=== PATIENT | male | born 1995 | race Caucasian/White ===

== ENCOUNTER 2017-06-02 11:21 | Inpatient (IN) | payer OTHER ==
[~2017-06-02] VITALS: Ht 170.2 cm; Wt 58.0 kg
[~2017-06-02 11:21] MED LIST: AKWASOL OU; AMBI10TA PO; CELE20TA PO; SERO50TA PO; no home medications
[2017-06-02 12:20] LABS: MEAN CORPUSCULAR HEMOGLOBIN 28.4 pg (27.0-33.0); MEAN CORPUSCULAR HGB CONC 35.2 g/dl (32.0-36.5); MEAN CORPUSCULAR VOLUME 80.5 fl (80.0-96.0); RED CELL DISTRIBUTION WIDTH 12.2 % (11.5-14.5); WHITE BLOOD COUNT 6.3 10^3/uL (4.0-10.0)
[2017-06-02 12:59] LABS: ALBUMIN 4.9 GM/DL (3.2-5.2); ALKALINE PHOSPHATASE 45 U/L (45-117); ALT/SGPT 27 U/L (12-78); ANION GAP 5 MEQ/L (8-16); AST/SGOT 17 U/L (15-37); BILIRUBIN,DIRECT 0.3 MG/DL (0.0-0.2); BILIRUBIN,TOTAL 1.5 MG/DL (0.2-1.0); BLOOD UREA NITROGEN 12 MG/DL (7-18); CALCIUM LEVEL 9.3 MG/DL (8.5-10.1); CARBON DIOXIDE LEVEL 28 MEQ/L (21-32); CHLORIDE LEVEL 107 MEQ/L (98-107); CREATININE FOR GFR 0.91 MG/DL (0.70-1.30); GLOMERULAR FILTRATION RATE > 60.0 (>60); GLUCOSE, FASTING 100 MG/DL (70-105); POTASSIUM SERUM 4.3 MEQ/L (3.5-5.1); SODIUM LEVEL 140 MEQ/L (136-145); TOTAL PROTEIN 8.4 GM/DL (6.4-8.2)
[2017-06-02 13:32] LABS: METHADONE URINE NEGATIVE (NEGATIVE)
[2017-06-02] MEDS ORDERED: MAALOX 30 ML SUSP *UDC PO PRN (15:30)
[2017-06-02] MEDS ORDERED: MOM 30ML SUSPENSION UDC PO PRN (15:30)
[2017-06-02] MEDS ORDERED: OLANZapine 5 MG TAB PO PRN (15:30)
[2017-06-02] MEDS ORDERED: ACETAMINOPHEN TAB 650MG DOSE (2X325MG) PO PRN (15:30)
[2017-06-02] MEDS ORDERED: LORazepam 2 MG/ML VIAL (J2060) IM STA (16:12)
[2017-06-02] MEDS ORDERED: HALOPERIDOL 5 MG/ML VIAL (J1630) IM STA (16:12)
[2017-06-02 19:06] VITALS: BP 144/79
[2017-06-02] MEDS: PALIPERIDONE 3 MG ER TAB (INVEGA) PO SCH (21:45)
[2017-06-02] MEDS: traZODone 100 MG TAB PO SCH (21:45)
[2017-06-03 06:40] VITALS: BP 128/74
[2017-06-03] MEDS: PALIPERIDONE 3 MG ER TAB (INVEGA) PO SCH ×2 (09:15→21:00)
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
[2017-06-03 18:00] VITALS: BP 120/70
[2017-06-03] MEDS: traZODone 100 MG TAB PO SCH (21:00)
[2017-06-04 06:23] VITALS: BP_SYST 136
[2017-06-04] MEDS: PALIPERIDONE 3 MG ER TAB (INVEGA) PO SCH ×2 (08:36→21:42)
[2017-06-04 18:00] VITALS: BP 118/75
--- NOTE | 2017-06-04 19:35 | MHIPNPDOC ---
[facility] Progress Note Progress Note DATE OF SERVICE: 06/04/17 HISTORY: "I don't need to be here"; Patient was brought by parents to [facility] after they noticed he was reacting to internal stimuli, talking to people that were not there and starring into space of lengthy periods of time. He was transferred to the [facility] ED medically cleared and transferred to the [facility] with a unspecified psychotic disorder. VITAL SIGNS: See below. NEW TEST RESULTS: None CURRENT MEDICATIONS: See below. MENTAL STATUS EXAMINATION: Patient is a 22-year old male, who is alert, cooperative, dressed in hospital clothes, mildly disheveled. Speech: Is spontaneous and fluent. Language skills are fair. Thought processes including: Irrational. Thought content: Focused on being discharged because he still believes he doesn' t need to be at the inpatient mental health unit. Abstract reasoning, and computation: Not assessed at this time. Description of associations: Good. Description of abnormal or psychotic thoughts: Denies suicidal ideation, denies homicidal ideation denies thought delusions but he says that he sees a "scary moment in my basement" and "a tall skinny person that walked through the things that I have in my room". Judgment: Poor Insight: Poor. Orientation: Oriented 3. Recent and remote memory: Intact. Attention span and concentration: Fair. Language: Normal. Fund of knowledge: Not assessed at this time. Mood: Euthymic. Affect: And congruent with mood, slightly constricted. DIAGNOSES: 1. Unspecified psychotic disorder 2. Rule out schizophrenia 3. Rule out substance-induced psychosis ASSESSMENT: Patient is cooperative, calm, he is not aggressive but he has bizarre thoughts, like thinking that seen this scary woman in his basement ornithine person that went across his room is normal. He justifies his believes because he thinks that we are energy and that the "ghosts" that he is saw is the energy of people who have lived in that house probably 100 years ago. I think we should continue to gather information about previous substance abuse that could have caused this episode. MANAGEMENT PLAN: Will continue the same treatment plan. Will order CT of the head TIME SPENT: 30 minutes. Vital Signs Vital Signs Date Time Temp Pulse Resp B/P (MAP) Pulse Ox O2 Delivery O2 Flow Rate FiO2 06/04/17 18:00 93.0 107 16 118/75 (89) 06/04/17 06:23 76 06/02/17 11:21 Room Air Current Medications Current Medications Acetaminophen (Tylenol Tab) 650 mg Q6HP PRN PO HEADACHE or DISCOMFORT; Start at 15:30; Stop 07/02/17 at 15:29 Al Hydrox/Mg Hydrox/Simethicone (Mylanta) 30 ml Q4HP PRN PO HEARTBURN/ INDIGESTION; Start 06/02/17 at 15:30; Stop 07/02/17 at 15:29 Haloperidol (Haldol) 5 mg STAT STAT IM ; Start 06/02/17 at 16:12; Stop at 16:13; Status DC Home Med (Med Rec Complete!) ASDIRECTED XX ; Start 06/02/17 at 13:45; Stop at 13:45; Status DC Lorazepam (Ativan) 1 mg STAT STAT IM Last administered on 06/02/17 16:20; Start 06/02/17 at 16:12; Stop 06/02/17 at 16:13; Status DC Magnesium Hydroxide (Milk Of Magnesia) 30 ml DAILYPRN PRN PO CONSTIPATION; Start 06/02/17 at 15:30; Stop 07/02/17 at 15:29 Olanzapine (ZyPREXA) 5 mg Q4HP PRN PO ANXIETY/AGITATION; Start 06/02/17 at 15: 30; Stop 07/02/17 at 15:29 Paliperidone (Invega) 3 mg BID PO Last administered on 06/04/17 08:36; Start 06/02/17 at 21:00; Stop 07/02/17 at 20:59 Trazodone HCl (Desyrel) 100 mg QHS PO Last administered on 06/02/17 21:45; Start 06/02/17 at 21:00; Stop 07/02/17 at 20:59 Allergies Coded Allergies: [place] Flavor (Verified Allergy, Unknown, 07/04/14) CAMILO VOGT MD Jun 04, 2017 19:35
--- NOTE | 2017-06-04 21:20 | REPUSA ---
CT of the head Clinical history: altered mental status. Comparison: 07/07/2014. Technique: Multiple axial CT images were obtained through the head without administration of contrast . Findings: The ventricles and sulci are symmetric bilaterally. There is no evidence of acute hemorrhag e or infarct. There is no midline shift, mass effect, or extra-axial fluid collection. The osseous st ructures are unremarkable. The visualized paranasal sinuses and mastoid air cells are clear. Impression: Negative study.
[2017-06-04] MEDS: traZODone 100 MG TAB PO SCH (21:42)
--- NOTE | 2017-06-05 00:22 | HPE ---
DATE OF ADMISSION: 06/02/2017 HISTORY OF PRESENT ILLNESS: Please refer to psychiatric history and evaluation for further details on this admission. This examination and history is intended for medical issues, which may need treatment, followup or consult on this 22-year-old male. PAST MEDICAL HISTORY: None. PAST SURGICAL HISTORY: [place] teeth extraction. ALLERGIES: No known drug allergies. He does have allergy to strawberry flavor. SOCIAL HISTORY: He is single. Resides with his parents. His father is retired . Ethyl alcohol (EtOH): 1-2 beers, none in about 6 months. Smokes none. Recreational drug use: Marijuana and hash. RADIOLOGY STUDIES: CT was negative. EKG on file sinus rhythm. LABORATORY STUDIES: CBC was normal. Electrolytes normal. BUN 12, creatinine 0.9. Total bilirubin 1.5, direct bilirubin 0.3. Urine was positive for cannabinoids. HOME MEDICATIONS: None. REVIEW OF SYSTEMS: 10-system review was done, was unremarkable. PHYSICAL EXAMINATION: 22-year-old cooperative male in no acute distress. Height 67 inches, weight 58.9 kg, body mass index (BMI) 20.3. Blood pressure 136/70, pulse 80, respirations 18, temperature 98.3. Patient is alert and oriented times three. Pupils equal and react to light. Extraocular muscles intact. Cornea and sclerae clear. Conjunctivae were normal. No facial asymmetry. Pharynx, tongue and gums pink and moist. Tongue is midline. Neck is supple without lymphadenopathy. No thyromegaly, no goiter. Carotids 2+ without bruit. Chest clear to auscultation without wheeze or retraction. Heart is regular. Abdomen is benign. Bowel sounds positive. Genitourinary/rectal: Not done. Extremities show equal strength, full range of motion. No cyanosis, clubbing or edema. Peripheral pulses equal and palpable bilaterally. Skin is warm and dry. IMPRESSION/PLAN: Psychiatric plan per psychiatry. No current acute medical issues.
[2017-06-05 06:20] VITALS: BP 118/70
[2017-06-05] MEDS: PALIPERIDONE 3 MG ER TAB (INVEGA) PO SCH ×2 (10:39→20:07)
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
[2017-06-05 18:14] VITALS: BP 108/76
[2017-06-05] MEDS: traZODone 100 MG TAB PO SCH (20:07)
[2017-06-06 06:34] VITALS: BP 101/60
[2017-06-06] MEDS: PALIPERIDONE 3 MG ER TAB (INVEGA) PO SCH ×2 (09:58→21:12)
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
[2017-06-06 18:00] VITALS: BP 122/80
[2017-06-06] MEDS: traZODone 100 MG TAB PO SCH (21:12)
[2017-06-07 06:43] VITALS: BP 110/69
[2017-06-07] MEDS: PALIPERIDONE 3 MG ER TAB (INVEGA) PO SCH ×2 (08:17→21:50)
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
[2017-06-07 18:55] VITALS: BP 122/75
[2017-06-07] MEDS: traZODone 100 MG TAB PO SCH (21:50)
[2017-06-08 07:02] VITALS: BP 130/70
[2017-06-08] MEDS: PALIPERIDONE 3 MG ER TAB (INVEGA) PO SCH (08:23)
[2017-06-08] MEDS ORDERED: PALIPERIDONE PALMITATE 234 MG/1.5 ML INJ (INVEGA SUSTENNA)(J2426) IM SCH (09:00)
[2017-06-08] MEDS ORDERED: PALIPERIDONE PALMITATE 156 MG/1ML INJ(INVEGA SUSTENNA)(J2426) IM SCH (09:00)
[2017-06-08] MEDS ORDERED: INVE234I IM (09:23)
[2017-06-08] MEDS ORDERED: TRAZ10TA PO (09:23)
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
[2017-06-27] MEDS ORDERED: INVE234I IM ×2 (14:09→14:12)
== END 2017-06-08 11:00 | disposition home or self-care (01) | DRG 885 ==
LOC: M ED 11:21 → M ED INP 15:15 → M PSY 19:03
PROVIDERS: ADMIT Psychiatry & Neurology Psychiatry; ATTEND Psychiatry & Neurology Psychiatry
DX: F25.9 Schizoaffective disorder, unspecified (principal); F12.90 Cannabis use, unspecified, uncomplicated; Z79.899 Other long term (current) drug therapy

== ENCOUNTER → 2017-07-12 | Outpatient (CLI) | payer OTHER ==
[~2017-07-12] MED LIST changes: +INVE234I IM; +TRAZ10TA PO
== END ==
LOC: M OUTALCOH 11:59
PROVIDERS: ATTEND Psychiatry & Neurology Psychiatry
DX: F12.20 Cannabis dependence, uncomplicated (principal)

== ENCOUNTER → 2017-08-03 | Outpatient (RCR) | payer OTHER | LOC: M OUTALCOH 07-25 09:00 | PROVIDERS: ATTEND Psychiatry & Neurology Psychiatry | DX: F12.20 Cannabis dependence, uncomplicated (principal) ==

== ENCOUNTER 2017-08-10 11:00 | Outpatient (RCR) | payer OTHER | END 2017-09-03 | LOC: M OUTALCOH 08-17 10:00 | DX: F12.20 Cannabis dependence, uncomplicated (principal) ==

== ENCOUNTER 2017-09-07 11:00 | Outpatient (RCR) | payer OTHER | END 2017-10-04 | LOC: M OUTALCOH 11:00 | DX: F12.20 Cannabis dependence, uncomplicated (principal) | CPT/HCPCS: 90834 ==

== ENCOUNTER 2017-10-05 13:20 | Outpatient (RCR) | payer OTHER | END 2017-11-01 | LOC: M OUTALCOH 13:20 | DX: F12.20 Cannabis dependence, uncomplicated (principal) ==

== ENCOUNTER 2017-11-06 13:11 | Outpatient (RCR) | payer OTHER | END 2017-12-02 | LOC: M OUTALCOH 11-20 09:00 | DX: F12.20 Cannabis dependence, uncomplicated (principal) ==

== ENCOUNTER → 2021-10-15 | Outpatient (CLI) | payer OTHER ==
[~2021-10-15] MED LIST changes: -TRAZ10TA PO; +TRAZ1TAB12 PO
== END ==
LOC: M WUC 14:21
PROVIDERS: ATTEND Student in an Organized Health Care Education/Training Program
DX: M54.50 Low back pain, unspecified (principal)

== ENCOUNTER 2022-02-22 14:00 | Inpatient (IN) | payer OTHER ==
[~2022-02-22] VITALS: Ht 170.2 cm; Wt 61.8 kg
[2022-02-22 14:38] LABS: HEMATOCRIT 47.3 % (42.0-52.0); HEMOGLOBIN 16.9 g/dl (13.5-17.5); MEAN CORPUSCULAR HEMOGLOBIN 29.4 pg (27.0-33.0); MEAN CORPUSCULAR HGB CONC 35.7 g/dl (32.0-36.5); MEAN CORPUSCULAR VOLUME 82.3 fl (80.0-96.0); PLATELET COUNT, AUTOMATED 322 10^3/uL (150-450); RED BLOOD COUNT 5.75 10^6/uL (4.30-6.10); WHITE BLOOD COUNT 9.9 10^3/uL (4.0-10.0)
[2022-02-22 15:10] LABS: ALBUMIN 4.5 GM/DL (3.2-5.2); ALT/SGPT 28 U/L (12-78); BILIRUBIN,DIRECT 0.1 MG/DL (0.0-0.2); BILIRUBIN,TOTAL 0.8 MG/DL (0.2-1.0); BLOOD UREA NITROGEN 11 MG/DL (7-18); CALCIUM LEVEL 9.9 MG/DL (8.5-10.1); CARBON DIOXIDE LEVEL 25 MEQ/L (21-32); CHLORIDE LEVEL 106 MEQ/L (98-107); ETHYL ALCOHOL (ETHANOL) < 0.003 % (0.000-0.010); GLOMERULAR FILTRATION RATE > 60.0 (>60); GLUCOSE, FASTING 97 MG/DL (70-100); POTASSIUM SERUM 3.9 MEQ/L (3.5-5.1); SALICYLATE LEVEL 3.7 MG/DL (5.0-30.0); SODIUM LEVEL 141 MEQ/L (136-145); TOTAL PROTEIN 7.8 GM/DL (6.4-8.2)
[2022-02-22 15:12] LABS: RSV AMPLIFICATION NEGATIVE (NEGATIVE)
[2022-02-22 15:51] LABS: AMPHETAMINES LEVEL URINE NEGATIVE (NEGATIVE); BARBITURATES URINE NEGATIVE (NEGATIVE); BENZODIAZEPINES URINE NEGATIVE (NEGATIVE); CANNABINOIDS URINE POSITIVE (NEGATIVE); COCAINE METABOLITE URINE NEGATIVE (NEGATIVE); METHADONE URINE NEGATIVE (NEGATIVE); OPIATES URINE NEGATIVE (NEGATIVE); PHENCYCLIDINE URINE NEGATIVE (NEGATIVE)
[2022-02-22 16:23] LABS: ACETAMINOPHEN LEVEL < 2.0 UG/ML (0.0-30.0)
[2022-02-22] MEDS ORDERED: OLANZapine ORAL DISINTEGRATING TAB 5MG PO PRN (18:05)
[2022-02-22] MEDS ORDERED: MOM 30ML SUSPENSION UDC PO PRN (18:05)
[2022-02-22] MEDS ORDERED: MAALOX 30 ML SUSP *UDC PO PRN (18:05)
[2022-02-22] MEDS: traZODone 50 MG TAB PO PRN (21:14)
[2022-02-23] MEDS ORDERED: PALIPERIDONE 3 MG ER TAB (INVEGA) PO SCH (09:00)
[2022-02-23] MEDS: DIVALPROEX 250MG *ER* TAB PO SCH ×2 (09:00→21:01)
[2022-02-23] MEDS: OLANZapine 5 MG TAB PO SCH ×2 (09:00→21:02)
[2022-02-23] MEDS ORDERED: UNRESOLVED CLARIFICATION ENTRY XX STA (13:01)
[2022-02-23 16:22] VITALS: BP 139/90
[2022-02-23] MEDS: traZODone 50 MG TAB PO PRN (21:02)
[2022-02-24] MEDS ORDERED: UNRESOLVED CLARIFICATION ENTRY XX SCH (00:01)
[2022-02-24 06:43] VITALS: BP 104/67
[2022-02-24] MEDS: OLANZapine 5 MG TAB PO SCH (08:18)
[2022-02-24] MEDS: DIVALPROEX 250MG *ER* TAB PO SCH ×2 (08:18→20:56)
[2022-02-24] MEDS: ACETAMINOPHEN TAB 650MG DOSE (2X325MG) PO PRN ×2 (08:20→20:59)
[2022-02-24 17:16] VITALS: BP 119/68
[2022-02-24] MEDS: traZODone 50 MG TAB PO PRN (20:55)
[2022-02-24] MEDS: ARIPiprazole 10 MG TAB PO SCH (20:55)
[2022-02-25 08:23] LABS: CHOLESTEROL RISK RATIO 4.777 (<5)
[2022-02-25] MEDS: ACETAMINOPHEN TAB 650MG DOSE (2X325MG) PO PRN (13:38)
[2022-02-25] MEDS ORDERED: SILD50TA2 PO (15:09)
[2022-02-25] MEDS ORDERED: HOME MED LIST COMPLETE! XX SCH (15:10)
[2022-02-25 17:03] VITALS: BP 128/72
[2022-02-25] MEDS: ARIPiprazole 10 MG TAB PO SCH (21:05)
[2022-02-25] MEDS: DIVALPROEX 250MG *ER* TAB PO SCH (21:05)
[2022-02-26 06:24] VITALS: BP 147/87
[2022-02-26 17:04] VITALS: BP 127/77
[2022-02-26] MEDS: ARIPiprazole 10 MG TAB PO SCH (20:34)
[2022-02-26] MEDS: DIVALPROEX 250MG *ER* TAB PO SCH (20:34)
[2022-02-27 06:40] VITALS: BP 127/79
[2022-02-27 16:26] VITALS: BP 128/80
[2022-02-27] MEDS: ARIPiprazole 10 MG TAB PO SCH (21:42)
[2022-02-27] MEDS: DIVALPROEX 250MG *ER* TAB PO SCH (21:42)
[2022-02-27] MEDS: ACETAMINOPHEN TAB 650MG DOSE (2X325MG) PO PRN (21:50)
[2022-02-28 07:09] VITALS: BP 131/72
[2022-02-28] MEDS ORDERED: DEPA250T2 PO (08:38)
[2022-02-28] MEDS ORDERED: ABIL10TA9 PO (08:38)
[2022-03-01] MEDS ORDERED: ABIL10TA9 PO (14:00)
[2022-03-01] MEDS ORDERED: DEPA250T2 PO (14:00)
== END 2022-02-28 12:33 | disposition home or self-care (01) | DRG 885 ==
LOC: M ED 14:00 → M ED INP 18:03 → M PSY 20:52
PROVIDERS: ADMIT Psychiatry & Neurology Psychiatry; ATTEND Psychiatry & Neurology Psychiatry
DX: F25.0 Schizoaffective disorder, bipolar type (principal); F12.10 Cannabis abuse, uncomplicated; Z91.51 Personal history of suicidal behavior; Z79.899 Other long term (current) drug therapy; Z91.018 Allergy to other foods; M54.9 Dorsalgia, unspecified

== ENCOUNTER 2022-04-06 11:07 | Outpatient (RCR) | payer OTHER ==
[~2022-04-06 11:07] MED LIST changes: +ABIL10TA9 PO; +DEPA250T2 PO; +SILD50TA2 PO
== END 2022-05-04 ==
LOC: M PT 11:07
PROVIDERS: ATTEND Student in an Organized Health Care Education/Training Program
DX: M54.50 Low back pain, unspecified (principal)

== ENCOUNTER → 2022-05-19 | Outpatient (CLI) | payer OTHER ==
[2022-05-19 15:33] LABS: BASO # 0.1 10^3/uL (0.0-0.2); BASO % 0.5 % (0.0-1.0); EOS # 0.1 10^3/uL (0.0-0.5); EOS % 1.1 % (0.0-3.0); HEMATOCRIT 48.3 % (42.0-52.0); HEMOGLOBIN 16.5 g/dl (13.5-17.5); LYMPH # 2.2 10^3/uL (1.5-5.0); LYMPH % 22.7 % (24.0-44.0); MEAN CORPUSCULAR HEMOGLOBIN 28.8 pg (27.0-33.0); MEAN CORPUSCULAR HGB CONC 34.2 g/dl (32.0-36.5); MEAN CORPUSCULAR VOLUME 84.3 fl (80.0-96.0); MONO # 0.5 10^3/uL (0.0-0.8); MONO % 5.7 % (2.0-8.0); NEUTROPHILS # 6.6 10^3/uL (1.5-8.5); NEUTROPHILS % 69.6 % (36.0-66.0); PLATELET COUNT, AUTOMATED 267 10^3/uL (150-450); RED BLOOD COUNT 5.73 10^6/uL (4.30-6.10); WHITE BLOOD COUNT 9.5 10^3/uL (4.0-10.0)
[2022-05-19 16:23] LABS: ALBUMIN 4.4 GM/DL (3.2-5.2); ALT/SGPT 24 U/L (12-78); BILIRUBIN,TOTAL 0.5 MG/DL (0.2-1.0); BLOOD UREA NITROGEN 10 MG/DL (7-18); CALCIUM LEVEL 10.1 MG/DL (8.5-10.1); CARBON DIOXIDE LEVEL 28 MEQ/L (21-32); CHLORIDE LEVEL 108 MEQ/L (98-107); CREATININE FOR GFR 0.85 MG/DL (0.70-1.30); GLOMERULAR FILTRATION RATE > 60.0 (>60); GLUCOSE, FASTING 87 MG/DL (70-100); POTASSIUM SERUM 4.6 MEQ/L (3.5-5.1); RHEUMATOID FACTOR QUANT < 10.0 IU/ML (<15.0); SODIUM LEVEL 139 MEQ/L (136-145); TOTAL PROTEIN 7.7 GM/DL (6.4-8.2)
[2022-05-19 16:36] LABS: ERYTHROCYTE SEDIMENTATION RATE 2 mm/hr (0-15)
[2022-05-19 16:46] LABS: TOTAL 25(OH) VITAMIN D 25.2 NG/ML (30.0-100.0)
== END ==
LOC: M PLALAB 12:48
PROVIDERS: ATTEND Psychiatry & Neurology Neurology
DX: R51.9 Headache, unspecified (principal)

== ENCOUNTER → 2022-06-30 | Outpatient (CLI) | payer OTHER | LOC: M LABSMTC 11:18 | PROVIDERS: ATTEND Anesthesiology | DX: Z01.812 Encounter for preprocedural laboratory examination (principal); Z11.52 Encounter for screening for COVID-19 ==

== ENCOUNTER 2022-07-05 07:51 | Day surgery (SDC) | payer OTHER ==
[~2022-07-05] VITALS: Ht 170.2 cm; Wt 63.0 kg
[~2022-07-05 07:51] MED LIST changes: +NS 1,000 ML IV ONE
[2022-07-05] MEDS ORDERED: LIDOCAINE 2% 100MG/5ML SDV (FOR ANES.) As Ordered ONE (10:37)
[2022-07-05] MEDS ORDERED: propofoL 200 MG/20 ML VIAL As Ordered ONE (10:37)
[2022-07-05 11:25] VITALS: BP 110/78
== END 2022-07-05 11:37 | disposition home or self-care (01) ==
LOC: M OPP 07:51
PROVIDERS: ATTEND Internal Medicine Gastroenterology
DX: K63.89 Other specified diseases of intestine (principal); K64.4 Residual hemorrhoidal skin tags; K64.8 Other hemorrhoids; K92.1 Melena; I49.3 Ventricular premature depolarization; F32.9 Major depressive disorder, single episode, unspecified; F41.9 Anxiety disorder, unspecified; G43.909 Migraine, unspecified, not intractable, without status migrainosus; Z79.899 Other long term (current) drug therapy; Z91.018 Allergy to other foods

== ENCOUNTER 2023-04-22 23:57 | Inpatient (IN) | payer MEDICAID, OTHER, SELFPAY ==
[~2023-04-22] VITALS: Ht 167.6 cm; Wt 58.1 kg
[~2023-04-22 23:57] MED LIST changes: -AKWASOL OU; +ARTIDRO2 OU; -NS 1,000 ML IV ONE
[2023-04-23 01:14] LABS: ETHYL ALCOHOL (ETHANOL) < 0.003 % (0.000-0.010)
[2023-04-23 01:16] LABS: ACETAMINOPHEN LEVEL < 2.0 UG/ML (10.0-20.0); ALBUMIN 4.7 G/DL (3.2-5.2); ALKALINE PHOSPHATASE 46 U/L (46-116); ALT/SGPT 31 U/L (7.0-40); AST/SGOT 22 U/L (<34); BILIRUBIN,DIRECT 0.2 MG/DL (<0.4); BILIRUBIN,TOTAL 0.7 MG/DL (0.3-1.2); BLOOD UREA NITROGEN 9 MG/DL (9-23); CALCIUM LEVEL 9.2 MG/DL (8.5-10.1); CARBON DIOXIDE LEVEL 26 MMOL/L (20-31); CHLORIDE LEVEL 105 MMOL/L (98-107); GLOMERULAR FILTRATION RATE > 60.0 (>60); GLUCOSE, FASTING 101 MG/DL (60-100); POTASSIUM SERUM 3.6 MMOL/L (3.5-5.1); SALICYLATE LEVEL < 3.0 MG/DL (<30); SODIUM LEVEL 140 MMOL/L (136-145); TOTAL PROTEIN 7.4 G/DL (5.7-8.2)
[2023-04-23 01:18] LABS: THYROID STIMULATING HORMONE 3.568 uIU/ML (0.55-4.78)
[2023-04-23 01:22] LABS: HEMATOCRIT 45.5 % (42.0-52.0); HEMOGLOBIN 15.9 g/dl (13.5-17.5); MEAN CORPUSCULAR HEMOGLOBIN 28.9 pg (27.0-33.0); MEAN CORPUSCULAR HGB CONC 34.9 g/dl (32.0-36.5); MEAN CORPUSCULAR VOLUME 82.6 fl (80.0-96.0); PLATELET COUNT, AUTOMATED 335 10^3/uL (150-450); RED BLOOD COUNT 5.51 10^6/uL (4.30-6.10); WHITE BLOOD COUNT 11.1 10^3/uL (4.0-10.0)
[2023-04-23 01:24] LABS: AMPHETAMINES LEVEL URINE NEGATIVE (NEGATIVE); BARBITURATES URINE NEGATIVE (NEGATIVE); BENZODIAZEPINES URINE NEGATIVE (NEGATIVE); COCAINE METABOLITE URINE NEGATIVE (NEGATIVE); METHADONE URINE NEGATIVE (NEGATIVE)
[2023-04-23 01:25] LABS: OPIATES URINE NEGATIVE (NEGATIVE); PHENCYCLIDINE URINE NEGATIVE (NEGATIVE)
[2023-04-23 01:28] LABS: CANNABINOIDS URINE POSITIVE (NEGATIVE)
[2023-04-23] MEDS ORDERED: HOME MED LIST COMPLETE! XX SCH (06:30)
[2023-04-23] MEDS ORDERED: LORazepam 2 MG TAB PO ONE (18:25)
[2023-04-24] MEDS ORDERED: MOM 30ML SUSPENSION UDC PO PRN (13:05)
[2023-04-24] MEDS ORDERED: OLANZapine 5 MG TAB PO PRN (13:05)
[2023-04-24 16:09] VITALS: BP 92/53; TEMP 97.7; O2SAT 99
[2023-04-24] MEDS: diphenhydrAMINE 25MG CAP PO PRN (21:29)
[2023-04-24] MEDS: MAALOX 30 ML SUSP *UDC PO PRN (21:29)
[2023-04-24] MEDS: IBUPROFEN 400MG TAB PO PRN (21:30)
[2023-04-25 06:25] VITALS: BP 105/65; TEMP 97.4; O2SAT 99
[2023-04-25 19:19] VITALS: BP 131/80; TEMP 98.3
[2023-04-25 19:20] VITALS: BP 131/71; TEMP 98.3; O2SAT 99
[2023-04-25] MEDS: traZODone 50 MG TAB PO PRN (22:20)
[2023-04-26 06:42] VITALS: BP 119/78; TEMP 98; O2SAT 100
[2023-04-26] MEDS: IBUPROFEN 400MG TAB PO PRN (08:53)
[2023-04-26] MEDS: OLANZapine 5 MG TAB PO SCH ×2 (09:51→21:59)
[2023-04-26 18:19] VITALS: BP 125/69; TEMP 97.2; O2SAT 98
[2023-04-27 07:05] VITALS: BP 112/74; TEMP 98.7; O2SAT 99
[2023-04-27] MEDS: OLANZapine 5 MG TAB PO SCH ×2 (09:13→20:32)
[2023-04-27] MEDS: VALPROIC ACID 250MG CAP PO SCH ×2 (12:43→20:32)
[2023-04-27 18:06] VITALS: BP 128/79; TEMP 96.8; O2SAT 99
[2023-04-27] MEDS: traZODone 50 MG TAB PO PRN (20:32)
[2023-04-28 06:49] VITALS: BP 121/82; TEMP 97.3; O2SAT 98
[2023-04-28] MEDS: OLANZapine 5 MG TAB PO SCH ×2 (07:46→21:59)
[2023-04-28] MEDS: VALPROIC ACID 250MG CAP PO SCH ×2 (07:47→21:59)
[2023-04-28] MEDS: diphenhydrAMINE 25MG CAP PO PRN (17:41)
[2023-04-28 20:24] VITALS: BP 140/90; TEMP 97.8
[2023-04-29 06:41] VITALS: BP 126/70; TEMP 97.2; O2SAT 99
[2023-04-29] MEDS: IBUPROFEN 400MG TAB PO PRN (07:46)
[2023-04-29] MEDS: ACETAMINOPHEN TAB 650MG DOSE (2X325MG) PO PRN (09:23)
[2023-04-29] MEDS: VALPROIC ACID 250MG CAP PO SCH ×2 (09:23→20:51)
[2023-04-29] MEDS: OLANZapine 5 MG TAB PO SCH ×2 (09:24→20:50)
[2023-04-29 14:58] VITALS: BP 93/70; TEMP 97.8; O2SAT 96
[2023-04-29] MEDS: traZODone 50 MG TAB PO PRN (20:50)
[2023-04-30 06:14] VITALS: BP 104/62; TEMP 97.5; O2SAT 100
[2023-04-30] MEDS: OLANZapine 5 MG TAB PO SCH ×2 (08:22→20:14)
[2023-04-30] MEDS: VALPROIC ACID 250MG CAP PO SCH ×2 (08:22→20:14)
[2023-04-30 17:05] VITALS: BP 111/67; TEMP 97; O2SAT 98
[2023-04-30] MEDS: diphenhydrAMINE 25MG CAP PO PRN (18:09)
[2023-04-30] MEDS: traZODone 50 MG TAB PO PRN (20:14)
[2023-05-01 06:45] VITALS: BP 135/76; TEMP 96.8; O2SAT 98
[2023-05-01] MEDS: IBUPROFEN 400MG TAB PO PRN (07:26)
[2023-05-01] MEDS: OLANZapine 5 MG TAB PO SCH ×2 (08:16→20:30)
[2023-05-01] MEDS: VALPROIC ACID 250MG CAP PO SCH ×3 (08:16→20:30)
[2023-05-01] MEDS: LIDOCAINE 5% (LIDODERM) PATCH TD SCH (12:02)
[2023-05-01] MEDS: ACETAMINOPHEN TAB 650MG DOSE (2X325MG) PO PRN (15:36)
[2023-05-01 16:16] VITALS: BP 110/61; TEMP 98.3; O2SAT 100
[2023-05-02 06:18] VITALS: BP 123/85; TEMP 97.8; O2SAT 97
[2023-05-02] MEDS: LIDOCAINE 5% (LIDODERM) PATCH TD SCH (08:15)
[2023-05-02] MEDS: OLANZapine 5 MG TAB PO SCH ×2 (08:17→20:52)
[2023-05-02] MEDS: VALPROIC ACID 250MG CAP PO SCH ×3 (08:17→20:51)
[2023-05-02 16:39] VITALS: BP 124/78; TEMP 97.1; O2SAT 97
[2023-05-02] MEDS: traZODone 50 MG TAB PO PRN (21:44)
[2023-05-03 06:23] VITALS: BP 121/76; TEMP 97.7; O2SAT 99
[2023-05-03] MEDS: LIDOCAINE 5% (LIDODERM) PATCH TD SCH (08:09)
[2023-05-03] MEDS: OLANZapine 5 MG TAB PO SCH ×2 (08:09→20:17)
[2023-05-03] MEDS: VALPROIC ACID 250MG CAP PO SCH ×3 (08:09→20:17)
[2023-05-03 16:34] VITALS: BP 111/89; TEMP 97; O2SAT 100
[2023-05-03] MEDS: MAALOX 30 ML SUSP *UDC PO PRN (21:39)
[2023-05-03] MEDS: traZODone 50 MG TAB PO PRN (21:41)
[2023-05-04 05:47] VITALS: BP 120/76; TEMP 98; O2SAT 99
[2023-05-04] MEDS ORDERED: diphenhydrAMINE 50MG CAP PO ONE (08:20)
[2023-05-04] MEDS ORDERED: diphenhydrAMINE CREAM 30GM TOP PRN (08:20)
[2023-05-04] MEDS: OLANZapine 5 MG TAB PO SCH ×2 (08:28→20:11)
[2023-05-04] MEDS: VALPROIC ACID 250MG CAP PO SCH ×3 (08:28→20:10)
[2023-05-04] MEDS: LIDOCAINE 5% (LIDODERM) PATCH TD SCH (09:00)
[2023-05-04 17:57] VITALS: BP 126/78; TEMP 97.5; O2SAT 98
[2023-05-04] MEDS: traZODone 50 MG TAB PO PRN (20:10)
[2023-05-04] MEDS: IBUPROFEN 400MG TAB PO PRN (20:42)
[2023-05-05] MEDS: diphenhydrAMINE 25MG CAP PO PRN (04:07)
[2023-05-05 06:30] VITALS: BP 144/90; TEMP 97.3; O2SAT 98
[2023-05-05] MEDS: VALPROIC ACID 250MG CAP PO SCH ×3 (08:10→20:11)
[2023-05-05] MEDS: LIDOCAINE 5% (LIDODERM) PATCH TD SCH (08:11)
[2023-05-05] MEDS: OLANZapine 5 MG TAB PO SCH ×2 (08:11→20:11)
[2023-05-05 19:04] VITALS: BP 128/84; TEMP 97.9
[2023-05-05] MEDS: traZODone 50 MG TAB PO PRN (20:11)
[2023-05-06 06:23] VITALS: BP 118/79; TEMP 98.6; O2SAT 99
[2023-05-06] MEDS: VALPROIC ACID 250MG CAP PO SCH ×3 (08:09→20:25)
[2023-05-06] MEDS: OLANZapine 5 MG TAB PO SCH ×2 (08:10→20:25)
[2023-05-06] MEDS: IBUPROFEN 400MG TAB PO PRN (08:11)
[2023-05-06] MEDS: LIDOCAINE 5% (LIDODERM) PATCH TD SCH (08:15)
[2023-05-06 18:11] VITALS: BP 123/79; TEMP 97.3; O2SAT 100
[2023-05-06] MEDS: traZODone 50 MG TAB PO PRN (20:25)
[2023-05-07] MEDS: ACETAMINOPHEN TAB 650MG DOSE (2X325MG) PO PRN (06:39)
[2023-05-07 06:49] VITALS: BP 160/79; TEMP 97.2; O2SAT 99
[2023-05-07] MEDS: LIDOCAINE 5% (LIDODERM) PATCH TD SCH (07:55)
[2023-05-07] MEDS: VALPROIC ACID 250MG CAP PO SCH (07:57)
[2023-05-07] MEDS: OLANZapine 5 MG TAB PO SCH (07:57)
[2023-05-07] MEDS ORDERED: OLAN1TAB16 PO (08:18)
[2023-05-07] MEDS ORDERED: VALP1CAP2 PO (08:18)
== END 2023-05-07 09:48 | disposition home or self-care (01) | DRG 753 ==
LOC: M ED 23:57 → M ED INP 04-24 13:02 → M PSY 04-24 16:20
PROVIDERS: ADMIT Student in an Organized Health Care Education/Training Program; ATTEND Psychiatry & Neurology Child & Adolescent Psychiatry
DX: F31.9 Bipolar disorder, unspecified (principal); F12.10 Cannabis abuse, uncomplicated; Z91.018 Allergy to other foods; G43.909 Migraine, unspecified, not intractable, without status migrainosus; M54.9 Dorsalgia, unspecified; G89.29 Other chronic pain; F25.0 Schizoaffective disorder, bipolar type

== ENCOUNTER → 2023-07-12 | Outpatient (CLI) | payer MEDICAID, OTHER ==
[~2023-07-12] MED LIST changes: +OLAN1TAB16 PO; +VALP1CAP2 PO
[2023-07-12 11:11] LABS: BASO # 0.1 10^3/uL (0.0-0.2); BASO % 0.7 % (0.0-1.0); EOS # 0.2 10^3/uL (0.0-0.5); EOS % 2.5 % (0.0-3.0); HEMATOCRIT 44.2 % (42.0-52.0); HEMOGLOBIN 15.5 g/dl (13.5-17.5); LYMPH # 1.9 10^3/uL (1.5-5.0); LYMPH % 27.7 % (24.0-44.0); MEAN CORPUSCULAR HEMOGLOBIN 29.3 pg (27.0-33.0); MEAN CORPUSCULAR HGB CONC 35.1 g/dl (32.0-36.5); MEAN CORPUSCULAR VOLUME 83.6 fl (80.0-96.0); MONO # 0.6 10^3/uL (0.0-0.8); MONO % 8.3 % (2.0-8.0); NEUTROPHILS # 4.2 10^3/uL (1.5-8.5); NEUTROPHILS % 60.4 % (36.0-66.0); PLATELET COUNT, AUTOMATED 227 10^3/uL (150-450); RED BLOOD COUNT 5.29 10^6/uL (4.30-6.10); WHITE BLOOD COUNT 6.9 10^3/uL (4.0-10.0)
[2023-07-12 11:33] LABS: VALPROIC ACID (DEPAKOTE) 48.5 UG/ML (50.0-100.0)
[2023-07-12 11:35] LABS: ALBUMIN 4.1 G/DL (3.2-5.2); ALKALINE PHOSPHATASE 39 U/L (46-116); ALT/SGPT 54 U/L (7.0-40); AST/SGOT 28 U/L (<34); BILIRUBIN,DIRECT 0.1 MG/DL (<0.4); BILIRUBIN,TOTAL 0.5 MG/DL (0.3-1.2); BLOOD UREA NITROGEN 19 MG/DL (9-23); CALCIUM LEVEL 9.3 MG/DL (8.5-10.1); CARBON DIOXIDE LEVEL 26 MMOL/L (20-31); CHLORIDE LEVEL 108 MMOL/L (98-107); CHOLESTEROL LEVEL 215 MG/DL (<200); CHOLESTEROL RISK RATIO 7.02 (<5); CREATININE FOR GFR 0.81 MG/DL (0.70-1.30); GLOMERULAR FILTRATION RATE > 60.0 (>60); GLUCOSE, FASTING 64 MG/DL (60-100); HDL CHOLESTEROL 30.6 MG/DL (>40); LDL CHOLESTEROL 132.6 MG/DL (<100); NON-HDL-C 184.4 MG/DL; POTASSIUM SERUM 4.9 MMOL/L (3.5-5.1); SODIUM LEVEL 141 MMOL/L (136-145); TOTAL PROTEIN 7.1 G/DL (5.7-8.2); TRIGLYCERIDES LEVEL 259 MG/DL (<150)
[2023-07-12 11:39] LABS: THYROXINE (T4) 7.6 UG/DL (4.5-10.9)
[2023-07-12 11:40] LABS: THYROID STIMULATING HORMONE 0.876 uIU/ML (0.55-4.78); TOTAL 25(OH) VITAMIN D 29.4 NG/ML (20.0-100.0)
== END ==
LOC: M LAB 10:44
PROVIDERS: ATTEND Registered Nurse Psychiatric/Mental Health
DX: Z01.89 Encounter for other specified special examinations (principal)

== ENCOUNTER → 2024-02-14 | Outpatient (REF) | payer BC ==
[2024-02-14 19:04] LABS: ALBUMIN 4.4 G/DL (3.2-5.2); ALKALINE PHOSPHATASE 59 U/L (46-116); ALT/SGPT 179 U/L (7.0-40); AST/SGOT 78 U/L (<34); BILIRUBIN,TOTAL 0.7 MG/DL (0.3-1.2); BLOOD UREA NITROGEN 12 MG/DL (9-23); CALCIUM LEVEL 9.6 MG/DL (8.5-10.1); CARBON DIOXIDE LEVEL 28 MMOL/L (20-31); CHLORIDE LEVEL 108 MMOL/L (98-107); CHOLESTEROL LEVEL 165 MG/DL (<200); CHOLESTEROL RISK RATIO 6.68 (<5); CREATININE FOR GFR 0.85 MG/DL (0.70-1.30); GLOMERULAR FILTRATION RATE > 60.0 (>60); GLUCOSE, FASTING 88 MG/DL (60-100); HDL CHOLESTEROL 24.7 MG/DL (>40); NON-HDL-C 140.3 MG/DL; POTASSIUM SERUM 4.6 MMOL/L (3.5-5.1); SODIUM LEVEL 142 MMOL/L (136-145); TOTAL PROTEIN 7.4 G/DL (5.7-8.2); TRIGLYCERIDES LEVEL 506 MG/DL (<150)
[2024-02-14 21:13] LABS: HEMOGLOBIN A1c 4.7 % (4.0-6.0)
== END ==
LOC: M SFHCLERA 11:29
PROVIDERS: ATTEND Physician Assistant
DX: E78.2 Mixed hyperlipidemia (principal); F25.0 Schizoaffective disorder, bipolar type

== ENCOUNTER → 2024-02-16 | Outpatient (CLI) | payer BC, OTHER | LOC: M LAB 17:37 | PROVIDERS: ATTEND Registered Nurse Psychiatric/Mental Health | DX: Z51.81 Encounter for therapeutic drug level monitoring (principal) ==

== ENCOUNTER → 2024-04-30 | Outpatient (CLI) | payer OTHER | LOC: M RAD 09:05 | PROVIDERS: ATTEND Family Medicine | DX: R74.01 Elevation of levels of liver transaminase levels (principal) ==

== ENCOUNTER 2024-07-28 08:14 | Emergency (ER) | payer MEDICARE, OTHER ==
[~2024-07-28] VITALS: Ht 170.2 cm; Wt 100.3 kg
[2024-07-28] MEDS ORDERED: OLAN1TAB70 (08:24)
[2024-07-28] MEDS ORDERED: DIVA250T7 (08:24)
[2024-07-28] MEDS ORDERED: DIVA500T9 (08:24)
[2024-07-28] MEDS ORDERED: ROSU5TAB49 (08:24)
[2024-07-28] MEDS ORDERED: OMEP-173 (08:24)
[2024-07-28] MEDS: KETOROLAC 30 MG/ML 1ML VIAL IV ONE (09:12)
[2024-07-28 09:23] LABS: BASO # 0.1 10^3/uL (0.0-0.2); BASO % 0.7 % (0.0-1.0); EOS # 0.1 10^3/uL (0.0-0.5); EOS % 1.7 % (0.0-3.0); HEMATOCRIT 44.1 % (42.0-52.0); LYMPH # 2.5 10^3/uL (1.5-5.0); LYMPH % 36.2 % (24.0-44.0); MEAN CORPUSCULAR HEMOGLOBIN 29.5 pg (27.0-33.0); MEAN CORPUSCULAR HGB CONC 36.3 g/dl (32.0-36.5); MEAN CORPUSCULAR VOLUME 81.2 fl (80.0-96.0); MONO # 0.6 10^3/uL (0.0-0.8); MONO % 8.7 % (2.0-8.0); NEUTROPHILS # 3.6 10^3/uL (1.5-8.5); NEUTROPHILS % 52.4 % (36.0-66.0); PLATELET COUNT, AUTOMATED 250 10^3/uL (150-450); RED BLOOD COUNT 5.43 10^6/uL (4.30-6.10); WHITE BLOOD COUNT 6.9 10^3/uL (4.0-10.0)
[2024-07-28 09:40] LABS: LIPASE 35 U/L (12-53)
[2024-07-28 09:42] LABS: ALKALINE PHOSPHATASE 74 U/L (40-129); ALT/SGPT 132 U/L (7.0-40); AST/SGOT 44 U/L (<34); BILIRUBIN,DIRECT 0.2 MG/DL (<0.4); BILIRUBIN,TOTAL 0.8 MG/DL (0.3-1.2); BLOOD UREA NITROGEN 11 MG/DL (9-23); CALCIUM LEVEL 9.5 MG/DL (8.5-10.1); CARBON DIOXIDE LEVEL 26 MMOL/L (20-31); CHLORIDE LEVEL 105 MMOL/L (98-107); CREATININE FOR GFR 0.94 MG/DL (0.70-1.30); GLOMERULAR FILTRATION RATE > 60.0 (>60); GLUCOSE, FASTING 104 MG/DL (60-100); SODIUM LEVEL 139 MMOL/L (136-145); TOTAL PROTEIN 7.4 G/DL (5.7-8.2)
[2024-07-28] MEDS ORDERED: ISOVUE-370 76% 100ML VIAL As Ordered ONE (10:39)
[2024-07-28] MEDS ORDERED: IBUP-1022 PO (11:53)
[2024-07-28 11:55] VITALS: BP 104/68; TEMP 97; O2SAT 96
== END 2024-07-28 12:14 | disposition home or self-care (01) ==
LOC: M ED 08:14
DX: K65.9 Peritonitis, unspecified (principal); Z91.018 Allergy to other foods; Z79.1 Long term (current) use of non-steroidal anti-inflammatories (NSAID); Z79.899 Other long term (current) drug therapy
CPT/HCPCS: 74177; 80048; 80076; 83690; 85025; 96374; 99284; J1885; Q9967

== ENCOUNTER → 2024-08-31 | Outpatient (CLI) | payer MEDICARE ==
[~2024-08-31] MED LIST changes: +DIVA250T7; +DIVA500T9; +IBUP-1022 PO; +OLAN1TAB70; +OMEP-173; +ROSU5TAB49
[2024-08-31 09:53] LABS: ALBUMIN 4.3 G/DL (3.2-5.2); ALKALINE PHOSPHATASE 72 U/L (40-129); ALT/SGPT 125 U/L (7.0-40); AST/SGOT 51 U/L (<34); BILIRUBIN,TOTAL 0.6 MG/DL (0.3-1.2); BLOOD UREA NITROGEN 11 MG/DL (9-23); CALCIUM LEVEL 9.4 MG/DL (8.5-10.1); CARBON DIOXIDE LEVEL 26 MMOL/L (20-31); CHLORIDE LEVEL 109 MMOL/L (98-107); CHOLESTEROL LEVEL 144 MG/DL (<200); CHOLESTEROL RISK RATIO 6.42 (<5); CREATININE FOR GFR 0.89 MG/DL (0.70-1.30); GLOMERULAR FILTRATION RATE > 60.0 (>60); GLUCOSE, FASTING 106 MG/DL (60-100); HDL CHOLESTEROL 22.4 MG/DL (>40); LDL CHOLESTEROL 54.4 MG/DL (<100); NON-HDL-C 121.6 MG/DL; POTASSIUM SERUM 4.3 MMOL/L (3.5-5.1); SODIUM LEVEL 144 MMOL/L (136-145); TOTAL PROTEIN 7.3 G/DL (5.7-8.2); TRIGLYCERIDES LEVEL 336 MG/DL (<150)
== END ==
LOC: M LAB 08:26
PROVIDERS: ATTEND Family Medicine
DX: K76.0 Fatty (change of) liver, not elsewhere classified (principal); E78.1 Pure hyperglyceridemia

== ENCOUNTER → 2024-09-11 | Outpatient (CLI) | payer MEDICARE ==
[2024-09-11 16:18] LABS: HEMATOCRIT 45.6 % (42.0-52.0); HEMOGLOBIN 16.2 g/dl (13.5-17.5); MEAN CORPUSCULAR HEMOGLOBIN 29.1 pg (27.0-33.0); MEAN CORPUSCULAR HGB CONC 35.5 g/dl (32.0-36.5); PLATELET COUNT, AUTOMATED 263 10^3/uL (150-450); RED BLOOD COUNT 5.56 10^6/uL (4.30-6.10); WHITE BLOOD COUNT 7.6 10^3/uL (4.0-10.0)
== END ==
LOC: M PLALAB 14:22
DX: K76.0 Fatty (change of) liver, not elsewhere classified (principal)

== ENCOUNTER → 2025-04-17 | Outpatient (CLI) | payer MEDICARE ==
[~2025-04-17] MED LIST changes: -AMBI10TA PO; +DEPA250T PO; -DEPA250T2 PO; +ZOLP-533 PO
[2025-04-17 15:05] LABS: VALPROIC ACID (DEPAKOTE) 79.9 UG/ML (50.0-100.0)
[2025-04-17 15:07] LABS: ALT/SGPT 173 U/L (7.0-40); AST/SGOT 84 U/L (<34); CALCIUM LEVEL 9.3 MG/DL (8.5-10.1); CARBON DIOXIDE LEVEL 28 MMOL/L (20-31); CHLORIDE LEVEL 106 MMOL/L (98-107); CREATININE FOR GFR 0.98 MG/DL (0.70-1.30); GLOMERULAR FILTRATION RATE > 90.0 (>60); POTASSIUM SERUM 4.8 MMOL/L (3.5-5.1); SODIUM LEVEL 144 MMOL/L (136-145)
== END ==
LOC: M LAB 14:00
PROVIDERS: ATTEND Registered Nurse Psychiatric/Mental Health
DX: F20.9 Schizophrenia, unspecified (principal)

== ENCOUNTER → 2025-07-17 | Outpatient (CLI) | payer MEDICARE ==
[~2025-07-17] MED LIST changes: -IBUP-1022 PO; +IBUP600T42 PO
[2025-07-17 15:15] LABS: BASO # 0.1 10^3/uL (0.0-0.2); BASO % 0.6 % (0.0-1.0); EOS # 0.2 10^3/uL (0.0-0.5); EOS % 2.1 % (0.0-3.0); LYMPH # 2.7 10^3/uL (1.5-5.0); LYMPH % 32.6 % (24.0-44.0); MONO # 0.7 10^3/uL (0.0-0.8); MONO % 7.9 % (2.0-8.0); NEUTROPHILS # 4.6 10^3/uL (1.5-8.5); NEUTROPHILS % 55.7 % (36.0-66.0); PLATELET COUNT, AUTOMATED 323 10^3/uL (150-450)
[2025-07-17 15:47] LABS: ALT/SGPT 132 U/L (7.0-40); AST/SGOT 64 U/L (<34); CALCIUM LEVEL 9.1 MG/DL (8.5-10.1); CARBON DIOXIDE LEVEL 28 MMOL/L (20-31); CHLORIDE LEVEL 106 MMOL/L (98-107); CHOLESTEROL LEVEL 164 MG/DL (<200); CHOLESTEROL RISK RATIO 7.55 (<5); CREATININE FOR GFR 0.95 MG/DL (0.70-1.30); GLOMERULAR FILTRATION RATE > 90.0 (>60); NON-HDL-C 142.3 MG/DL; POTASSIUM SERUM 4.5 MMOL/L (3.5-5.1); SODIUM LEVEL 142 MMOL/L (136-145); TRIGLYCERIDES LEVEL 428 MG/DL (<150)
== END ==
LOC: M LAB 14:23
PROVIDERS: ATTEND Family Medicine
DX: K76.0 Fatty (change of) liver, not elsewhere classified (principal); E78.2 Mixed hyperlipidemia